=== PATIENT | female | born 1990 | race Caucasian/White ===

== ENCOUNTER 2019-07-17 00:13 | Inpatient (IN) | payer OTHER ==
[~2019-07-17] VITALS: Ht 165.1 cm; Wt 65.0 kg
[2019-07-17] MEDS ORDERED: PRENATAL VITAM1 EACH PO (03:33)
--- NOTE | 2019-07-17 10:26 | NUR ---
07/17/19 1026 Sheets,Jennifer 0925 PT ARRIVED TO PACU DROWSY BUT TALKING TO RN. PT REPORTS PAIN 12/28. PRINTING MACHINE MECHANIC AND MD AT BEDSIDE, ORDERS TO GIVE 4 UNITS OF FFP AND THEN STAT LABS. SECOND RN TO LAB FOR FFP. VSS. TWO IV NOTED IN LEFT ARM, WNL AND NO BLEEDING NOTED AROUND INSERTION SITES. RESP EVEN AND UNLABORED. 0940 VSS, FFP STARTED AND SECOND RN AT BEDSIDE HELPING WITH BLOOD PRODUCTION TRANSFUSTION. O2 MASK REMOVED, SMALL AMOUNT OF DRAINAGE ON ТАТЬЯНА PAD. PT DROWSY AND TALKING TO RN, RN ANSWERING QUESTIONS TO PT RELATED TO BABY AND SURGERY. PT EXPREESES SHE WANTS TO GO SEE HER , PLAN OF CARE DISCUSSED. 0945 FFP STARTED WITH SECOND RN AT BEDSIDE. FAIZAN RN AND MICK RN AT BEDSIDE. 1003 FFP DONE. PT REPORTS NO PROBLEMS AT THIS TIME. PT DENIES PAIN AND NAUSEA. PT CONTINUES TO TALK TO RN AND ASKING ABOUT HER BABY. 1012 FFP STARTED 1015 MD AT BEDSIDE AND YESIKA OF CARE DISCUSSED, PT TO GO TO CCU AFTER FOUR UNITS OF FFP GIVEN AND STAT LABS DONE. 1017 PRINTING MACHINE MECHANIC AT BEDSIDE AND REPORTS HE UPDATED .
--- NOTE | 2019-07-17 11:35 | NUR ---
PT ARRIVED TO CCU VIA BED FROM PACU. PT ORIENTED TO ROOM AND CALL LIGHT. REPORT GIVEN FROM JEWELRY MODEL MAKER. CHECKED PTS BLEEDING ON PAD. SMALL AMOUNT OF BLOOD ON ТАТЬЯНА PAD. WILL CONTINUE TO MONITOR. GUPTA IN PLACE. DRAINED 650ML OF CLEAR YELLOW URINE.
--- NOTE | 2019-07-17 11:53 | NUR ---
[facility] NURSE IN ROOM WITH BABY AND DAD. MOM TEARFUL BUT HAPPY TO SEE BABE.
--- NOTE | 2019-07-17 12:00 | NUR ---
IN ROOM TO ASSESS PT. GAVE VERBAL ORDER FOR ANOTHER UNIT OF PRBC'S AND TO RE-DRAW LABS AT 1400.
--- NOTE | 2019-07-17 12:13 | NUR ---
MARTHA HINTON STILL IN ROOM WITH AMARILIS AND AMARILIS'S DAD.
--- NOTE | 2019-07-17 12:20 | NUR ---
4TH UNIT OF BLOOD STARTED. STACY HINTON IN ROOM TO DOUBLE CHECK BLOOD.
--- NOTE | 2019-07-17 12:23 | PR ---
[facility] [address] [facility] [place], [place] [address] Signed Progress Notes IP Datetime Report Generated by CPN: 07/17/2019 12:23 PROGRESS NOTES: [id number] Procedures: Artificial ROM VITAL SIGNS: [id number] EXAM: [id number] Dilatation: 2.5 Effacement: 80 Station: -1 Uterine Contractions: every 2 minutes MEMBRANES: [id number] Membrane Status: Ruptured Amniotic Fluid Color: Clear ROM Note: AROM with clear fluid, but blood and clots in vagina Comments: Possible Abruption, fetus tolerating well, will watch closely. Fetus A: [id number] FHR Baseline: 120 Variability: Moderate 6-25bpm Accelerations: 15X15 Presentation: Vertex Fetus B: [id number] Signing Physician: Karley Almendarez MD Copies: ~ *Electronically Signed* 07/17/19 1223 KARLEY ALMENDAREZ MD PATIENT NAME: AMINA GARCIA PROGRESS NOTE DATE OF : [birth year] PHYSICIAN: KARLEY ALMENDAREZ MD RPT #: [id number] REPORT IS CONFIDENTIAL AND NOT TO BE RELEASED WITHOUT AUTHORIZATION
--- NOTE | 2019-07-17 12:25 | PR ---
[facility] [address] [facility] [place], [place] [address] Signed Progress Notes IP Datetime Report Generated by CPN: 07/17/2019 12:25 PROGRESS NOTES: [id number] Procedures: Artificial ROM VITAL SIGNS: [id number] EXAM: [id number] Dilatation: 2.5 Effacement: 80 Station: -1 Uterine Contractions: every 2 minutes MEMBRANES: [id number] Membrane Status: Ruptured Amniotic Fluid Color: Bloody ROM Note: AROM with clear fluid, but blood and clots in vagina Comments: Late Entry: continued vaignal bleeding with large clots, cannot tell fi fluid clear or bloody. Probable Placental Abruption Code 4 C/S Called Fetus A: [id number] FHR Baseline: 120 Variability: Moderate 6-25bpm Accelerations: 15X15 Presentation: Vertex Fetus B: [id number] Signing Physician: Karley Almendarez MD Copies: ~ *Electronically Signed* 07/17/19 1225 KARLEY ALMENDAREZ MD PATIENT NAME: AMINA GARCIA PROGRESS NOTE DATE OF : [birth year] PHYSICIAN: KARLEY ALMENDAREZ MD RPT #: [id number] REPORT IS CONFIDENTIAL AND NOT TO BE RELEASED WITHOUT AUTHORIZATION
--- NOTE | 2019-07-17 12:31 | PR ---
[facility] [address] [facility] [place], [place] [address] Signed PP Progress Notes Datetime Report Generated by CPN: 07/17/2019 12:31 SUBJECTIVE: [id number] Pain: Within normal limits Nausea/Vomiting: Denies Vital Signs: [id number] Vital Signs: Reviewed Notable Details: Plts = 109, Hgb = 8.0, Fibrinogne = 234 EXAM: [id number] Abdomen/Uterus: Normal Extremities: Normal Incision: Normal Exam Comments: slight bleeding from vagina (still has cervix) dressing clean and dry IMPRESSION/PLAN/PROCEDURES: [id number] Other Impression: PP Hemorrhage with ANemia Other Plans: Patient in ICU Progress Notes: Without complaint, awake and alert, minimal pain. Will give 4th unit of PRBC's and recheck labs in 2 hours. DIscussed diagnosis, intraop findings and decisions/plan with patient. Explaine still risk of DIC, need close monitoring. Signing Physician: Karley Almendarez MD Copies: ~ *Electronically Signed* 07/17/19 1231 KARLEY ALMENDAREZ MD PATIENT NAME: AMINA GARCIA PROGRESS NOTE DATE OF : [birth year] PHYSICIAN: KARLEY ALMENDAREZ MD RPT #: [id number] REPORT IS CONFIDENTIAL AND NOT TO BE RELEASED WITHOUT AUTHORIZATION
--- NOTE | 2019-07-17 12:55 | NUR ---
CONTACTED MD REGARDING PATIENTS ABDOMINAL PAIN 01/27. MD GAVE VERBAL ORDER FOR 1-2MG MORPINE IV Q 2 HRS PRN.
--- NOTE | 2019-07-17 13:17 | NUR ---
GAVE PATIENT 2MG MORPHINE IV. FOR ABDOMINAL PAIN 01/27.
--- NOTE | 2019-07-17 13:58 | NUR ---
lab technologist in room with patient.
--- NOTE | 2019-07-17 14:11 | NUR ---
IN ROOM TO ASSESS PT. PT COMPLAINING OF ABDOMINAL PAIN 01/27. ICE PACK IN PLACE. BLOOD TRANFUSION COMPLTETED.
--- NOTE | 2019-07-17 14:30 | NUR ---
CONTACTED MD WITH PATIENTS LABS. MD WANTED TO REDRAW LABS AT 1999 AND REASSESS.
--- NOTE | 2019-07-17 14:42 | NUR ---
pt complaining of pain 03/29. gave 1 tab percocet 5/325 PO.
--- NOTE | 2019-07-17 14:43 | NUR ---
Pts baby back in room with [facility] nurse.
--- NOTE | 2019-07-17 15:01 | NUR ---
RT IN ROOM WITH PATIENT TO INSTRUCT PATIENT WITH IS.
--- NOTE | 2019-07-17 15:39 | NUR ---
pt complained of nausea. gave cold rag for forhead and 4mg zofran IV.
--- NOTE | 2019-07-17 16:08 | NUR ---
in room to complete afternoon assessment. pt still complaining of abdominal pain. disucssed pain control with patient. discussed not being able to take pain away but managing it. pt veralized understanding. ice pack in place. pt state, "my nausea is better." crackers, jello, and ice water at bedside.
--- NOTE | 2019-07-17 18:33 | NUR ---
BABE IN ROOM WITH PATIENT.
--- NOTE | 2019-07-17 19:21 | PR ---
[facility] [address] [place], [place] [address] Signed PP Progress Notes Datetime Report Generated by CPN: 07/17/2019 19:21 SUBJECTIVE: [id number] Pain: Within normal limits Nausea/Vomiting: Denies Vital Signs: [id number] Vital Signs: Reviewed; Within Normal Limits Notable Details: Plts = 109, Hgb = 8.0, Fibrinogne = 234 EXAM: [id number] Abdomen/Uterus: Normal Lochia: Normal Extremities: Normal Incision: Normal Exam Comments: dressing clean and dry, no more vaginal bleeding IMPRESSION/PLAN/PROCEDURES: [id number] Other Impression: Seems to be stable, no eidence fo DIC at this time Plan: Continue present management Other Plans: Patient in ICU Other Procedures: Repeat Labs @ 2000 Progress Notes: Patient without complaint, still in ICU, wanting to come back to [facility]. Will continue close monitoring in ICU overnight. Discussed DIC with tyson again, questions answered. Signing Physician: Presley Almendarez MD Copies: ~ *Electronically Signed* 07/17/191920 PRESLEY ALMENDAREZ MD PATIENT NAME: AMINA GARCIA PROGRESS NOTE DATE OF : [birth year] PHYSICIAN: PRESLEY ALMENDAREZ MD RPT #: [id number] REPORT IS CONFIDENTIAL AND NOT TO BE RELEASED WITHOUT AUTHORIZATION
--- NOTE | 2019-07-17 20:31 | NUR ---
RESTING IN ROOM TAKING WATER WELL. LABS DRAWN. DR ALMENDAREZ WAS IN AT 1910. PT STATES FEELS LIKE HER BODY IS VERY TENSE AND IS UNABLE TO REST. GIVEN 2 PERCOSET PO. NO FRESH VAGINAL BLEEDING NOTED. CONT TO HAVE ICE TO ABD.
--- NOTE | 2019-07-17 21:28 | NUR ---
LAB RESULTS CALLED TO DR ALMENDAREZ, WILL REPEAT LABS IN AM. PT SPEAKING ON PHONE WITH FAMILY.
--- NOTE | 2019-07-17 22:33 | NUR ---
PT TURNED LIGHTS OFF, HAS COVERES UP TO HEAD AND APPEARS TO BE RESTING.
--- NOTE | 2019-07-17 22:56 | NUR ---
CALL LIGHT ANSWERED. ICE WATER REFILLED. EMPTIED GUPTA. MADE ICE PACK. NO OTHER NEEDS AT THIS MOMENT. PRIMARY RN IN THE ROOM.
--- NOTE | 2019-07-17 23:14 | NUR ---
PT AWAKE AND ASKING ABOUT BABY, CALLED [facility] AND PASSED UPDATE TO PT. PT DID STATE SHE DID PUMP SOME BREAST MILK. STATES STILL TOO PHYSICALLY TENSE TO SLEEP, RATES HAN PAIN6/10. GIVEN 2MG MORPHINE IV. TAKING WATER WELL.
--- NOTE | 2019-07-18 01:26 | NUR ---
HAS NOT BEEN ABLE TO SLEEP. PERCOSET WAS REPEATED FOR PAIN CONTROL. PT REQUESTING TO SEE BABY. BABY BROUGHT OVER BY [facility] NURSE. PT WAS COMFORTED BY BEING ABLE TO HOLD BABY.
--- NOTE | 2019-07-18 03:00 | NUR ---
STATES SLEPT FOR 15MIN. C/O ITCHING ON SHOULDERS AND CALVES OF LEGS. NO RASH NOTED. GIVEN 25MG BENADRYL IV.
--- NOTE | 2019-07-18 04:41 | NUR ---
IS SLEEPING. RESP REQ
--- NOTE | 2019-07-18 05:50 | NUR ---
AWAKE, RATES ABD PAIN 6/10. GIVEN 2 PERCOSET PO. LAB IN TO DRAW BLOOD.
--- NOTE | 2019-07-18 06:16 | NUR ---
[facility] NURSE IN WITH BABY.
--- NOTE | 2019-07-18 06:42 | NUR ---
NOW ASLEEP AFTER SEEING BABY.
--- NOTE | 2019-07-18 08:33 | PR ---
[facility] [address] [facility] [place], [place] [address] Signed PP Progress Notes Datetime Report Generated by CPN: 07/18/2019 08:33 SUBJECTIVE: [id number] Pain: Within normal limits Nausea/Vomiting: Denies Vital Signs: [id number] Vital Signs: Reviewed; Within Normal Limits Notable Details: Labs improving EXAM: [id number] Abdomen/Uterus: Normal Lochia: Normal Extremities: Normal Incision: Normal Exam Comments: normal post-op abdominal tenderness, absent uterus.No vaginal bleeding. Dressing clean and dry IMPRESSION/PLAN/PROCEDURES: [id number] Other Impression: Normal post-op Plan: Continue present management Other Plans: Patient in ICU Procedures: None Other Procedures: Repeat Labs @ 2000 Progress Notes: Patient doing well, labs improving. Will send back to [facility], start increasing diet and activity. Signing Physician: Karley Almendarez MD Copies: ~ *Electronically Signed* 07/18/19 0833 KARLEY ALMENDAREZ MD PATIENT NAME: AMINA GARCIA PROGRESS NOTE DATE OF : [birth year] PHYSICIAN: KARLEY ALMENDAREZ MD RPT #: [id number] REPORT IS CONFIDENTIAL AND NOT TO BE RELEASED WITHOUT AUTHORIZATION
--- NOTE | 2019-07-18 08:35 | NUR ---
PATIENT RESTING IN BED UPON INITIAL ASSESSMENT. PATIENT IS AWAKE, ALERT, AND EAGER TO SEE HER BABY THIS AM. GUPTA CATH REMAINS INTACT WITH ADEQUATE URINE OUTPUT. MINIMAL BLOODY DRAINAGE NOTED ON CHUX UNDER PATIENT. GUPTA CARE PROVIDED. SCDs ON. LUNGS CLEAR TO AUSCULTATION. PATIENT STATES PAIN IS TOLERABLE AT THIS TIME. DR. ALMENDAREZ IN TO SEE PATIENT AND ORDERS REC'D TO TRANSFER PATIENT BACK TO [facility].
--- NOTE | 2019-07-18 09:05 | NUR ---
PATIENT HELPED TO USE BREAST PUMP FOR APPROX 10 MINUTES. PATIENT THEN TRANSFERRED IN BED TO [facility] AND REPORT GIVEN TO JAMAAL THOMAS ON [facility]. PT VERY HAPPY TO TRANSFER BACK TO HER ROOM WITH HER SO AND BABY.
--- NOTE | 2019-07-18 14:49 | PR ---
[facility] [address] [facility] [place], [place] [address] Signed PP Progress Notes Datetime Report Generated by CPN: 07/18/2019 14:49 SUBJECTIVE: [id number] Pain: Within normal limits Pain Comments: Some wheezing, but better after coughing Nausea/Vomiting: Denies Flatus: No Vital Signs: [id number] Vital Signs: Reviewed; Within Normal Limits Notable Details: Labs improving EXAM: [id number] Respiratory: Normal Abdomen/Uterus: Abnormal Lochia: Normal Extremities: Normal Incision: Normal Exam Comments: abdomen slight distention, but soft, normal post-op tenderness, only occaisonal bowel sounds, dressing clean and dry IMPRESSION/PLAN/PROCEDURES: [id number] Other Impression: Post op gas pains Plan: Continue present management Other Plans: Patient in ICU Procedures: None Other Procedures: Repeat Labs @ 2000 Progress Notes: Increase activity as tolerated, feels a little better after Mylicon dose. Enouraged Incentive Spirometry, will have RT evaluate. Signing Physician: Karley Almendarez MD Copies: ~ *Electronically Signed* 07/18/19 1449 KARLEY ALMENDAREZ MD PATIENT NAME: AMINA GARCIA PROGRESS NOTE DATE OF : [birth year] PHYSICIAN: KARLEY ALMENDAREZ MD RPT #: [id number] REPORT IS CONFIDENTIAL AND NOT TO BE RELEASED WITHOUT AUTHORIZATION
--- NOTE | 2019-07-19 09:49 | PR ---
[facility] [address] [facility] [place] [facility] [place], [place] [address] Signed PP Progress Notes Datetime Report Generated by CPN: 07/19/2019 09:49 SUBJECTIVE: [id number] Pain: Within normal limits Pain Comments: Some wheezing, but better after coughing Nausea/Vomiting: Denies Flatus: No Vital Signs: [id number] Vital Signs: Reviewed; Within Normal Limits Notable Details: Labs improving EXAM: [id number] Respiratory: Normal Abdomen/Uterus: Normal Lochia: Normal Extremities: Normal Incision: Normal Exam Comments: abdomen slight distention, but soft, normal post-op tenderness, only occaisonal bowel sounds, dressing clean and dry IMPRESSION/PLAN/PROCEDURES: [id number] Impression: Normal progression Other Impression: Post op gas pains Plan: Continue present management Other Plans: Patient in ICU Procedures: None Other Procedures: Repeat Labs @ 1999 Progress Notes: Doing well, without complaint, feeling better than yesterday, tolerating food well. No vaginal bleeding. Expect home tomorrow. Signing Physician: Karley Almendarez MD Copies: ~ *Electronically Signed* 07/19/19 0949 KARLEY ALMENDAREZ MD PATIENT NAME: AMINA GARCIA PROGRESS NOTE DATE OF : [birth year] PHYSICIAN: KARLEY ALMENDAREZ MD RPT #: [id number] REPORT IS CONFIDENTIAL AND NOT TO BE RELEASED WITHOUT AUTHORIZATION
--- NOTE | 2019-07-19 09:58 | OR ---
[address] [place], [place] [address] Signed DATE OF OPERATION: 07/17/2019 SURGEON: Presley Chadwick MD PREOPERATIVE DIAGNOSIS: Term labor, placental abruption. POSTOPERATIVE DIAGNOSES: 1. Term labor, placental abruption. 2. Placenta Accreta 3. hemorrhage. 4. Severe blood loss. PROCEDURES: Emergency low transverse segment section, delivery of live female , Bakri balloon placement, intraoperative transfusion of packed red blood cells, and emergency supracervical hysterectomy. SHANK TURNER: Dr. Hendrix. ANESTHESIA: Epidural with IV sedation. ESTIMATED BLOOD LOSS: 3000 mL. COMPLICATIONS: Excessive hemorrhage, uterine atony, unsuccessful Bakri balloon treatment. DRAINS: Hair to bladder. FINDINGS: Live female infant. Placenta right at the anterior lower segment, but firmly attached anterior closer to the fundus. Uterus was quite boggy after delivery. Both tubes and ovaries were normal. DESCRIPTION OF PROCEDURE: The patient was brought into the operating room, placed in supine position. The patient Electronically Signed By: PRESLEY CHADWICK MD 07/19/19 0958 PATIENT NAME: AMINA GARCIA OPERATIVE REPORT DATE OF : [birth year] REPORT #: [id number] PHYSICIAN: PRESLEY CHADWICK MD PCP: NO PRIMARY CARE PHYSICIAN REPORT IS CONFIDENTIAL AND NOT TO BE RELEASED WITHOUT AUTHORIZATION [address] [address] Signed already had adequate epidural anesthesia. This was re-dosed. The patient already had Hair catheter in place. The patient was rapidly prepped and draped in usual sterile fashion. A Pfannenstiel skin incision was made with a scalpel, which was immediately extended through subcutaneous tissue and fascia with the scalpel. The fascia was opened in transverse fashion using curved scissors. The underlying abdominal musculature was bluntly and sharply from the fascia above and below the incision. The abdominal musculature was then bluntly along the midline. Peritoneum was grasped with hemostats, nicked with Metzenbaum scissors, and finger dissection used to open the peritoneum. The Koko self-retaining retractor was inserted into the incision in the lower uterine segment, carefully nicked with scalpel, and finger dissection used in a transverse fashion to open the uterine cavity. Infant was noted to be in vertex ROP presentation. The was easily delivered from the incision. The cord doubly clamped and cut. The passed off table in good condition, awaiting nurse. The edge of the placenta immediately came out of the incision, but the upper portion of the placenta was very tightly adherent to the uterine cavity and had to be removed manually. The uterus was massaged and the upper area examined, noted to have some bleeding, but did not appear to have any remaining placental tissue in the uterus. The patient was given IV Pitocin, then IM methargen, and finally intrauterine Hemabate, but the uterus remained very boggy. The edges of the incision continued to bleed as well as part of the bed of the uterus where the placenta had attached. The [place] drain was placed around the lower segment and tightened in place, and again the uterine cavity examined visually and manually. No placental tissue seemed to be remaining, but with tourniquet, the bleeding had slowed. At this point, angle stitch of #0 Monocryl was placed one in the incision, but before closing the incision with all the medications given, the uterus was still very boggy, so it was decided to place the Bakri balloon in the uterus. The Bakri balloon was brought onto the operating field. The tube placed through the cervix and the distal end was gently placed through cervix and out of the vagina, and the balloon placed manually in the fundus of the uterus. The [place] drain tourniquet was then removed. The balloon was filled from below with 100 mL of fluid and the incision then closed using a running locking stitch of #0 Monocryl making sure not to thaddeus the balloon. A 2nd running stitch of #0 Monocryl was used to imbricate the 1st layer. With this closed, 200 more mL fluid was placed in the Bakri balloon to fill the uterus and at this point, the uterus was quite firm. There was some bleeding along the edge of the uterine incision. This was controlled with two jzwsvb-zu-cavwe stitches of #0 Vicryl suture. The pelvis was irrigated, suctioned, and noted to have good hemostasis, and so the Koko retractor was removed from the incision. Before closing the peritoneum, the Bakri balloon distal end was examined and the balloon was noted to have continuous bleeding through the balloon port. Because of the continuous bleeding and the amount of blood loss so far, it was decided that the uterus needed to be removed for hemostasis. With the patient under IV Electronically Signed By: PRESLEY CHADWICK MD 07/19/19 0958 PATIENT NAME: AMINA GARCIA OPERATIVE REPORT DATE OF : 88 REPORT #: [id number] PHYSICIAN: PRESLEY CHADWICK MD PCP: NO PRIMARY CARE PHYSICIAN REPORT IS CONFIDENTIAL AND NOT TO BE RELEASED WITHOUT AUTHORIZATION [address] [address] Signed sedation, could not discuss this with her, but discussed hysterectomy with the patient's partner who said they were not planning on having any more children anyway. After re-scrubbing, the round ligaments on each side were clamped, cut, and stick-tied with #0 Vicryl suture. Then, upper pedicles including the fallopian tube and utero-ovarian ligament were doubly clamped with Zuri clamps, cut with scissors, and the pedicle stick-tied with #0 Vicryl suture with upper pedicles tied. The Bakri balloon was removed and straight Marlys clamps were clamping against the uterus and cutting this pedicle, and stick-tieing with #0 Vicryl suture. After 1st bite, the anterior peritoneum was grasped with hemostats, elevated, nicked with Metzenbaum scissors, and extended in transverse fashion to the dissection point and the bladder flap bluntly taken down to elevate the bladder, and pushed the bladder up out of the way. Two more straight clamps were used against the side of the lower uterine segment to incorporate the uterine vessels. These were clamped with straight Marlys clamps, cut, and then stick-tied with #0 Vicryl suture. Two curved Marlys clamps were then used to clamp across the upper portion of the cervix and the uterus, and cut free with curved Faith scissors and removed. An angle stitch of #0 Vicryl suture was placed one at each angle of the vaginal cuff using qneyvs-fy-nkybj stitch of #0 Vicryl suture. The remaining portion of the lower segment was closed using interrupted stitches of #0 Vicryl suture. At this time, there was some oozing from all along the cuff, so a 2nd running locking stitch of #0 Vicryl was used to imbricate the cuff. There was some bleeding along the peritoneal edges. This was taken care with Bovie. At this point, there was slight oozing from the area of the dissection, so Evicel was placed along the edge and pressure held for 3 minutes. The area was examined. At this point, there was noted to be some bleeding from the right utero-ovarian pedicle. This was clamped and then stick-tie placed to close this. By this time, the bleeding seemed to be under good control. The entire pelvis was irrigated, suctioned, and good hemostasis was noted. The upper abdomen was irrigated, suctioned the remaining blood, and again by this time, good hemostasis was noted. Evicel was placed along the entire dissecting area and Niko also placed along the edge to help with hemostasis because of the amount of blood loss and worry about possible DIC. Labs had been done just preoperatively and will be repeated postop, but these intraoperative labs were normal. At this point, the Koko retractor was removed and the anterior wall peritoneum closed using running stitch of 2-0 Vicryl suture. The abdominal musculature was closed using interrupted stitches of #0 Vicryl suture. The abdominal wall incision was irrigated, suctioned, and examined, and subsequently cauterized with the Bovie. Fascia was closed using two running stitches of #0 Vicryl suture meeting in the midline. After sprinkling Niko on the abdominal musculature, the subcutaneous tissue was closed using running stitch of 3-0 Vicryl suture and the skin reapproximated using skin clips. The patient tolerated the procedure well and went to recovery room in good condition. The sponge, needle, and instrument counts were correct at the end of procedure. The uterus and the placenta were both sent to Pathology for identification. The patient received 3 units of packed red blood cells, 3 units of 25% albumin, and 7 L of crystalloid during the procedure. Electronically Signed By: PRESLEY CHADWICK MD 07/19/19 0958 PATIENT NAME: AMINA GARCIA OPERATIVE REPORT DATE OF : 88 REPORT #: [id number] PHYSICIAN: PRESLEY CHADWICK MD PCP: NO PRIMARY CARE PHYSICIAN REPORT IS CONFIDENTIAL AND NOT TO BE RELEASED WITHOUT AUTHORIZATION [address] [place], [place] [address] Signed The 4 units of fresh frozen plasma had been ordered intraoperatively, but was not available until in recovery room. MD MANJINDER Lopez/MODL /[id number] Copies: ~ Electronically Signed By: PRESLEY CHADWICK MD 07/19/19 0958 PATIENT NAME: AMINA GARCIA OPERATIVE REPORT DATE OF : 88 REPORT #: [id number] PHYSICIAN: PRESLEY CHADWICK MD PCP: NO PRIMARY CARE PHYSICIAN REPORT IS CONFIDENTIAL AND NOT TO BE RELEASED WITHOUT AUTHORIZATION
--- NOTE | 2019-07-20 07:39 | PR ---
[facility] [address] [facility] [place], [place] [address] Signed PP Progress Notes Datetime Report Generated by CPN: 07/20/2019 07:39 SUBJECTIVE: [id number] Pain: Within normal limits Pain Comments: increased over night, somewhat better now Nausea/Vomiting: Present Flatus: Yes Bowel Movement: Yes BM Comments: x1 small amount Vital Signs: [id number] Vital Signs: Reviewed; Within Normal Limits Notable Details: Labs improving EXAM: [id number] Respiratory: Normal Abdomen/Uterus: Normal Lochia: Normal Extremities: Normal Incision: Normal Exam Comments: soft, slight tender, positive bowel sounds IMPRESSION/PLAN/PROCEDURES: [id number] Impression: Normal progression Other Impression: Possible postop ileus Plan: Continue present management Other Plans: CBC, CMP, Flat and Upright Abd x-ray Procedures: None Other Procedures: Repeat Labs @ 2000 Progress Notes: Patient was doing well until overnight when had more abdominal pain and N/V, early this morning more greenish emesis. Stop oral intake and restart IV fluids. Discussed with patient Signing Physician: Karley Almendarez MD Copies: ~ *Electronically Signed* 07/20/19 0739 KARLEY ALMENDAREZ MD PATIENT NAME: AMINA GARCIA PROGRESS NOTE DATE OF : 88 PHYSICIAN: KARLEY ALMENDAREZ MD RPT #: [id number] REPORT IS CONFIDENTIAL AND NOT TO BE RELEASED WITHOUT AUTHORIZATION
--- NOTE | 2019-07-20 09:42 | PR ---
[facility] [address] [facility] [place], [place] [address] Signed PP Progress Notes Datetime Report Generated by CPN: 07/20/2019 09:42 SUBJECTIVE: [id number] Pain: Within normal limits Pain Comments: increased over night, somewhat better now Nausea/Vomiting: Present Flatus: Yes Bowel Movement: Yes BM Comments: x1 small amount Vital Signs: [id number] Vital Signs: Reviewed; Within Normal Limits Notable Details: Labs improving EXAM: [id number] Respiratory: Normal Abdomen/Uterus: Normal Lochia: Normal Extremities: Normal Incision: Normal Exam Comments: soft, slight tender, positive bowel sounds IMPRESSION/PLAN/PROCEDURES: [id number] Impression: Normal progression Other Impression: Possible postop ileus Plan: Continue present management Other Plans: CBC, CMP, Flat and Upright Abd x-ray Procedures: None Other Procedures: Repeat Labs @ 1999 Progress Notes: Sleeping comforrtably now. x-ray shows only nonspecific gas pattern, no evidence of obstruction. Labs with only minor abnormalities. Will follow, continue NPO, IV Zofran prn. Signing Physician: Karley Almendarez MD Copies: ~ *Electronically Signed* 07/20/19 0942 KARLEY ALMENDAREZ MD PATIENT NAME: AMINA GARCIA PROGRESS NOTE DATE OF : 88 PHYSICIAN: KARLEY ALMENDAREZ MD RPT #: [id number] REPORT IS CONFIDENTIAL AND NOT TO BE RELEASED WITHOUT AUTHORIZATION
--- NOTE | 2019-07-20 13:07 | PR ---
[facility] [address] [facility] [place], [place] [address] Signed PP Progress Notes Datetime Report Generated by CPN: 07/20/2019 13:07 SUBJECTIVE: [id number] Pain: Within normal limits Pain Comments: increased over night, somewhat better now Nausea/Vomiting: Denies Flatus: Yes Bowel Movement: Yes BM Comments: x1 small amount Vital Signs: [id number] Vital Signs: Reviewed; Within Normal Limits Notable Details: Labs improving EXAM: [id number] Respiratory: Normal Abdomen/Uterus: Normal Lochia: Normal Extremities: Normal Incision: Normal Exam Comments: soft, slight tender, positive bowel sounds IMPRESSION/PLAN/PROCEDURES: [id number] Impression: Normal progression Other Impression: Possible postop ileus Plan: Continue present management Other Plans: CBC, CMP, Flat and Upright Abd x-ray Procedures: None Other Procedures: Repeat Labs @ 2000 Progress Notes: Feeling much better, no more N/V, feels like trying water. Will wait a little longer before restarting oral intake. Signing Physician: Karley Almendarez MD Copies: ~ *Electronically Signed* 07/20/19 1307 KARLEY ALMENDAREZ MD PATIENT NAME: AMINA GARCIA PROGRESS NOTE DATE OF : 88 PHYSICIAN: KARLEY ALMENDAREZ MD RPT #: [id number] REPORT IS CONFIDENTIAL AND NOT TO BE RELEASED WITHOUT AUTHORIZATION
--- NOTE | 2019-07-21 08:58 | PR ---
[facility] [address] [place], [place] [address] Signed PP Progress Notes Datetime Report Generated by CPN: 07/21/2019 08:58 SUBJECTIVE: [id number] Pain: Within normal limits Pain Comments: increased over night, somewhat better now Nausea/Vomiting: Present Nausea/Vomiting Comments: over night Flatus: Yes Bowel Movement: Yes BM Comments: x1 small amount Vital Signs: [id number] Vital Signs: Reviewed; Within Normal Limits Notable Details: Labs improving EXAM: [id number] Cardiovascular: Normal Respiratory: Normal Abdomen/Uterus: Normal Lochia: Normal CVA Tenderness: Normal Extremities: Normal Incision: Normal Exam Comments: Abd soft, + bosel sounds IMPRESSION/PLAN/PROCEDURES: [id number] Impression: Normal progression Other Impression: Post-op N/V. Critical low CO2 Plan: Continue present management Other Plans: Hospitalist Consult Procedures: None Other Procedures: Repeat Labs @ 1999 Progress Notes: c/o increased N/V overnight again after feeling better during the day. Now no N/V, just feels tired. Repeat CBC, CMP this am showed critical low CO2 of 9. Discussed with Dr. Burris (Hospitalist) for Consult - Lactic Acid and ABG ordered. NPO, IV, SCD's, O2 monitor. Discussed with patient, questions answered. Consider CT abd/pelvis (?ureteral injury) Signing Physician: Karley Almendarez MD Copies: *Electronically Signed* 07/21/19 0858 KARLEY ALMENDAREZ MD PATIENT NAME: AMINA GARCIA PROGRESS NOTE DATE OF : 88 PHYSICIAN: KARLEY ALMENDAREZ MD RPT #: [id number] REPORT IS CONFIDENTIAL AND NOT TO BE RELEASED WITHOUT AUTHORIZATION [address] [address] Signed ~ *Electronically Signed* 07/21/19 0858 KARLEY ALMENDAREZ MD PATIENT NAME: AMINA GARCIA PROGRESS NOTE DATE OF : [birth year] PHYSICIAN: KARLEY ALMENDAREZ MD RPT #: [id number] REPORT IS CONFIDENTIAL AND NOT TO BE RELEASED WITHOUT AUTHORIZATION
--- NOTE | 2019-07-21 18:16 | PR ---
[facility] [address] [facility] [place], [place] [address] Signed PP Progress Notes Datetime Report Generated by CPN: 07/21/2019 18:16 SUBJECTIVE: [id number] Pain: Within normal limits Pain Comments: increased over night, somewhat better now Nausea/Vomiting: Present Nausea/Vomiting Comments: over night Flatus: Yes Bowel Movement: Yes BM Comments: x1 small amount Vital Signs: [id number] Vital Signs: Reviewed; Within Normal Limits Notable Details: Labs improving EXAM: [id number] Cardiovascular: Normal Respiratory: Normal Abdomen/Uterus: Normal Lochia: Normal CVA Tenderness: Normal Extremities: Normal Incision: Normal Exam Comments: abdomen soft, nontender IMPRESSION/PLAN/PROCEDURES: [id number] Impression: Normal progression Other Impression: Improving Plan: Continue present management Other Plans: Hospitalist Consult Procedures: None Other Procedures: Repeat Labs @ 1999 Progress Notes: No c/o pain or nausea now, feels hungry. CT reported as normal. Appreciate Dr. Burris's consult. Will watch closely overnight Signing Physician: Karley Almendarez MD Copies: ~ *Electronically Signed* 07/21/19 1816 KARLEY ALMENDAREZ MD PATIENT NAME: AMINA GARCIA PROGRESS NOTE DATE OF : 88 PHYSICIAN: KARLEY ALMENDAREZ MD RPT #: [id number] REPORT IS CONFIDENTIAL AND NOT TO BE RELEASED WITHOUT AUTHORIZATION
--- NOTE | 2019-07-22 10:31 | PR ---
[facility] [address] [place], [place] [address] Signed PP Progress Notes Datetime Report Generated by CPN: 07/22/2019 10:31 SUBJECTIVE: [id number] Pain: Within normal limits Pain Comments: increased over night, somewhat better now Nausea/Vomiting: Denies Nausea/Vomiting Comments: over night Flatus: Yes Bowel Movement: Yes BM Comments: x1 small amount Vital Signs: [id number] Vital Signs: Reviewed; Within Normal Limits Notable Details: Labs improving EXAM: [id number] Cardiovascular: Normal Respiratory: Normal Abdomen/Uterus: Normal Lochia: Normal CVA Tenderness: Normal Extremities: Normal Incision: Normal Exam Comments: abdomen soft, nontender IMPRESSION/PLAN/PROCEDURES: [id number] Impression: Normal progression Other Impression: Hypokalemia, Hypomagnesemia Plan: Continue present management Other Plans: Hospitalist Consult Procedures: None Other Procedures: Repeat Labs @ 1999 Progress Notes: Did well overnight, no more N/V, tolerating regular diet, without complaint. IV Potasium and Magnesium supplementation per Dr. Burris. Hopefully home tomorrow Signing Physician: Karlye Almendarez MD Copies: ~ *Electronically Signed* 07/22/19 103 KARLEY ALMENDAREZ MD PATIENT NAME: AMINA GARCIA PROGRESS NOTE DATE OF : 88 PHYSICIAN: KARLEY ALMENDAREZ MD RPT #: [id number] REPORT IS CONFIDENTIAL AND NOT TO BE RELEASED WITHOUT AUTHORIZATION
[2019-07-23] MEDS ORDERED: TRANSDERM-SCOP1 EACH TD (09:13)
--- NOTE | 2019-07-23 10:40 | PR ---
[facility] [address] [facility] [place], [place] [address] Signed PP Progress Notes Datetime Report Generated by CPN: 07/23/2019 10:40 SUBJECTIVE: [id number] Pain: Within normal limits Pain Comments: increased over night, somewhat better now Nausea/Vomiting: Denies Nausea/Vomiting Comments: over night Flatus: Yes Bowel Movement: Yes BM Comments: x1 small amount Vital Signs: [id number] Vital Signs: Reviewed; Within Normal Limits Notable Details: Labs improving EXAM: [id number] Cardiovascular: Normal Respiratory: Normal Abdomen/Uterus: Normal Lochia: Normal CVA Tenderness: Normal Extremities: Normal Incision: Normal Exam Comments: abdomen soft, nontender IMPRESSION/PLAN/PROCEDURES: [id number] Impression: Normal progression Other Impression: Hypokalemia, Hypomagnesemia Plan: Discharge Other Plans: Hospitalist Consult Procedures: None Other Procedures: Repeat Labs @ 2000 Progress Notes: Doing well without complaint. Eating regular diet well, minimal pain. Signing Physician: Karley Almendarez MD Copies: ~ *Electronically Signed* 07/23/19 1040 KARLEY ALMENDAREZ MD PATIENT NAME: AMINA GARCIA PROGRESS NOTE DATE OF : 88 PHYSICIAN: KARLEY ALMENDAREZ MD RPT #: [id number] REPORT IS CONFIDENTIAL AND NOT TO BE RELEASED WITHOUT AUTHORIZATION
== END 2019-07-23 12:00 | disposition home or self-care (01) | DRG 787 ==
LOC: FBC 00:13 → CCU 12:09 → FBC 13:30
PROVIDERS: ADMIT General Practice
PROC: 0W3R7ZZ Control Bleeding in Genitourinary Tract, Via Natural or Artificial Opening (ICD-10-PCS; 2019-07-17)
PROC: 0UT90ZL Resection of Uterus, Supracervical, Open Approach (ICD-10-PCS; 2019-07-17)
PROC: 10907ZC Drainage of Amniotic Fluid, Therapeutic from Products of Conception, Via Natural or Artificial Opening (ICD-10-PCS; 2019-07-17)
PROC: 30233K1 Transfusion of Nonautologous Frozen Plasma into Peripheral Vein, Percutaneous Approach (ICD-10-PCS; 2019-07-17)
PROC: 30233N1 Transfusion of Nonautologous Red Blood Cells into Peripheral Vein, Percutaneous Approach (ICD-10-PCS; 2019-07-17)
PROC: 3E0P7VZ Introduction of Hormone into Female Reproductive, Via Natural or Artificial Opening (ICD-10-PCS; 2019-07-17)
PROC: 00HU33Z Insertion of Infusion Device into Spinal Canal, Percutaneous Approach (ICD-10-PCS; 2019-07-17)
PROC: 3E0R3BZ Introduction of Anesthetic Agent into Spinal Canal, Percutaneous Approach (ICD-10-PCS; 2019-07-17)
PROC: 10D00Z1 Extraction of Products of Conception, Low, Open Approach (ICD-10-PCS; principal; 2019-07-17 09:00)
DX: O45.93 Premature separation of placenta, unspecified, third trimester (principal); O72.0 Third-stage hemorrhage; E87.2 Acidosis; D62 Acute posthemorrhagic anemia; O99.324 Drug use complicating childbirth; Z3A.39 39 weeks gestation of pregnancy; Z37.0 Single live birth; O43.213 Placenta accreta, third trimester; O99.285 Endocrine, nutritional and metabolic diseases complicating the puerperium; E87.6 Hypokalemia; E83.42 Hypomagnesemia; O99.63 Diseases of the digestive system complicating the puerperium; K29.70 Gastritis, unspecified, without bleeding; O69.82X0 Labor and delivery complicated by other cord entanglement, without compression, not applicable or unspecified; O90.81 Anemia of the puerperium; O99.334 Smoking (tobacco) complicating childbirth; F17.210 Nicotine dependence, cigarettes, uncomplicated; O36.5930 Maternal care for other known or suspected poor fetal growth, third trimester, not applicable or unspecified; F12.90 Cannabis use, unspecified, uncomplicated; Z88.2 Allergy status to sulfonamides; Z88.1 Allergy status to other antibiotic agents
CPT/HCPCS: 01961; 36415; 36430; 36600; 74018; 74177; 80053; 82010; 82803; 83605; 83735; 84132; 85025; 85027; 85384; 85610; 85730; 86850; 86900; 86901; 86920; 86927; 88307; 94640; 94760; 99406; A9270; J1200; J2250; J2270; J2274; J2405; J2550; J2590; J2765; J2795; J3010; J3105; J3475; J3480; J7060; J7070; J7121; P9016